=== PATIENT | female | born 1975 | race Caucasian/White ===

== ENCOUNTER 2020-04-10 22:07 | Emergency (ER) | payer OTHER ==
[2020-04-10] MEDS ORDERED: Ketorolac 60 MG/2 ML SDV IM ONE (23:08)
[2020-04-10] MEDS ORDERED: Acetaminophen/oxyCODONE 325-5 MG Tab PO PRN (23:08)
[2020-04-10] MEDS ORDERED: Baclofen 10 MG Tab PO ONE (23:08)
--- NOTE | 2020-04-10 23:38 | EDM.PDOC ---
ED HPI GENERAL MEDICAL PROBLEM - General Chief Complaint: Lower Extremity Injury/Pain Stated Complaint: RT HIP DISLOCATED Time Seen by Provider: 04/10/20 22:45 Source of Information: Reports: Patient, RN History Limitations: Reports: No Limitations - History of Present Illness INITIAL COMMENTS - FREE TEXT/NARRATIVE: Daniela Figueroa is a 44 yo female that presents to the ED after hurting her right hip/ buttock while doing a cartwheel this evening. She states that her left leg landed first, followed by her right leg and she heard a "pop" when she landed. She fell backwards and landed on her buttocks due to the pain. She was unable to bear weight or ambulate. She is brought in by her SO. When staff was helping her take off her pants, another 'pop' was heard. rates her pain 10/10 along the mid right buttock along to lateral hip. very limited ability to do any active or passive range of motion due to pain. denies chance of - she's had a tubal and her SO has also had a vasectomy. Onset: Today, Sudden Onset Date: 04/10/20 Duration: Hour(s): (1 hour), Constant Location: Reports: Lower Extremity, Right Quality: Reports: Sharp Severity: Severe Improves with: Reports: Immobilization Worsens with: Reports: Movement Associated Symptoms: Reports: No Other Symptoms Right Hip Pain Score (Numeric/FACES): 10 - Related Data Allergies Allergy/AdvReac Type Severity Reaction Status Date / Time Sulfa (Sulfonamide Allergy Hives Verified 04/10/20 22:52 Antibiotics) Home Meds: Home Meds Albuterol Sulfate [Albuterol Sulfate Hfa] 2 puff INH ASDIRECTED 04/10/20 [History] Cetirizine [ZyrTEC] 10 mg PO DAILY 04/10/20 [History] Dextroamphetamine/Amphetamine [Adderall 10 mg Tablet] 10 mg PO TID 04/10/20 [History] Dextroamphetamine/Amphetamine [Adderall] 30 mg PO DAILY 04/10/20 [History] Fluticasone/Vilanterol [Breo Ellipta 100-25 MCG Inhalation Kit] 2 puff INH DAILY 04/10/20 [History] Lurasidone HCl [Latuda] 60 mg PO DAILY 04/10/20 [History] Past Medical History HEENT History: Reports: Sinusitis Respiratory History: Reports: Asthma 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 Social & Family History - Tobacco Use Smoking Status *Q: Never Smoker - Caffeine Use Caffeine Use: Reports: Coffee, Soda - Recreational Drug Use Recreational Drug Use: No Review of Systems - Review of Systems Review Of Systems: See Below Constitutional: Reports: No Symptoms Eyes: Reports: No Symptoms Ears: Reports: No Symptoms Nose: Reports: No Symptoms Mouth/Throat: Reports: No Symptoms Respiratory: Reports: No Symptoms Cardiovascular: Reports: No Symptoms GI/Abdominal: Reports: No Symptoms Genitourinary: Reports: No Symptoms Musculoskeletal: Reports: Joint Pain (right hip), Muscle Pain (right buttock) Skin: Reports: No Symptoms Neurological: Reports: No Symptoms Psychiatric: Reports: No Symptoms ED EXAM, GENERAL - Physical Exam Exam: See Below Free Text/Narrative:: With patient supine, leg length is equal. pedal pulses equal and WNL. Cap refill WNL on bilaterally feet. AROM is minimal. Able to abduct leg about 20 degrees with severe pain, able to adduct leg back to midline. with leg straight, pain w ith internal/ external rotation of leg. minimal tenderness at the SI joint, along the lateral hip joint, trochanter bursa, or anterior groin. Severe pain with palpation along the mid buttock/ piriformis muscle that extends laterally. Once patient was standing with weight bearing mostly on left leg, the pain was most severe at the proximal hamstring just inferior to buttock. Exam Limited By: Physical Impairment (pain in right hip, buttock) General Appearance: Alert, Mild Distress (due to pain) Head: Atraumatic, Normocephalic Respiratory/Chest: No Respiratory Distress Peripheral Pulses: 2+: Dorsalis Pedis (L), Dorsalis Pedis (R) Back Exam: Normal Inspection. No: CVA Tenderness (R), CVA Tenderness (L), Muscle Spasm, Paraspinal Tenderness, Vertebral Tenderness Extremities: Normal Capillary Refill, Leg Pain (posterior), Limited Range of Motion (of right lower extremity). No: Joint Swelling, Increased Warmth Neurological: Alert, Oriented, Abnormal Gait (minimal weight bearing on right leg- keeps leg straight with weight bearing. ). No: Sensory/Motor Deficit Psychiatric: Normal Affect Skin Exam: Warm, Dry, Intact. No: Wound/Incision Lymphatic: No Adenopathy Course - Vital Signs Last Recorded V/S: Last Vital Signs Temp 97.9 F 04/10/20 22:51 Pulse 75 04/11/20 00:42 Resp 20 04/10/20 22:51 BP 104/64 04/11/20 00:42 Pulse Ox 100 04/11/20 00:42 - Orders/Labs/Meds Orders: Active Orders 24 hr Category Date Time Status Hip Min 2V or 3V w Pelvis Rt [CR] Stat Exams 04/10/20 22:59 Taken DME for Discharge [COMM] Routine Oth 04/11/20 00:56 Ordered Meds: Medications Discontinued Medications Generic Name Dose Route Start Last Admin Trade Name Freq PRN Reason Stop Dose Admin Baclofen 10 mg 04/10/20 23:08 04/10/20 23:22 Lioresal PO 04/10/20 23:09 10 mg ONETIME ONE Administration Hydromorphone HCl 0.5 mg 04/11/20 00:36 04/11/20 00:42 Dilaudid IM 04/11/20 00:37 0.5 mg ONETIME ONE Administration Ketorolac Tromethamine 60 mg 04/10/20 23:08 04/10/20 23:24 Toradol IM 04/10/20 23:09 60 mg ONETIME ONE Administration Oxycodone/Acetaminophen 1 tab 04/10/20 23:08 04/10/20 23:21 Percocet 325-5 Mg PO 1 tab ONETIME PRN Administration Pain - Radiology Interpretation Free Text/Narrative:: no acute fractures or pathology noted. Official radiology reading pending. - Re-Assessments/Exams Free Text/Narrative Re-Assessment/Exam: 04/11/20 00:40 after reevaluation of pain, patient reports pain at 7/10 after initial pharmacological interventions. Dilaudid IM ordered now. able to bear some weight on right leg while ambulating to bathroom. upon standing, point to proximal hamstring as strongest area of pain. is feeling muscle spasms. Departure - Departure Time of Disposition: 00:56 Disposition: Home, Self-Care 01 Condition: Fair Clinical Impression: Hamstring injury - Discharge Information *PRESCRIPTION DRUG MONITORING PROGRAM REVIEWED*: No *COPY OF PRESCRIPTION DRUG MONITORING REPORT IN PATIENT BIN: No Instructions: Muscle Strain, [id number] Referrals: PCP,None [Primary Care Provider] - Forms: ED Department Discharge Additional Instructions: You have a hamstring muscle injury. perform low activity for now. Use the crutches for comfort. Use ice for 20 minutes at a time every few hours while awake. Use 600mg of ibuprofen every 6 hours for pain for next 5 days, then use as needed. take the ibuprofen with food. For break through pain, use the percocet pain pills every 6 hours as needed. For muscle spasms, take a Flexeril twice daily as needed. Both of these medications may make you drowsy or sleepy. Do not drive or operate machinery while taking these pills. Follow-up with your PCP back in [place] if you are not feeling better within 1 week. Sepsis Event Note (ED) - Evaluation Sepsis Screening Result: No Definite Risk - Focused Exam Vital Signs: Vital Signs Temp Pulse Resp BP Pulse Ox 04/11/20 00:42 75 104/64 100 04/10/20 22:51 97.9 F 89 20 122/74 97 04/10/20 22:49 97.9 F 89 20 122/74 97 - My Orders Last 24 Hours: My Active Orders 04/10/20 22:59 Hip Min 2V or 3V w Pelvis Rt [CR] Stat 04/11/20 00:56 DME for Discharge [COMM] Routine - Assessment/Plan Last 24 Hours: My Active Orders 04/10/20 22:59 Hip Min 2V or 3V w Pelvis Rt [CR] Stat 04/11/20 00:56 DME for Discharge [COMM] Routine Plan: RX for percocet and flexeril to use prn for hamstring muscle sprain. Crutches provided for comfort. Advised to rest and follow-up in not improving once she is back to [place]. Pt agreeable to plan. Discharged with pain controlled
[2020-04-11] MEDS ORDERED: HYDROmorphone 0.5 MG/0.5 ML Syringe IM ONE (00:36)
--- NOTE | 2020-04-11 09:10 | CR ---
Hip Min 2V or 3V w Pelvis Rt CLINICAL HISTORY: Fall FINDINGS: No fracture or osseous lesion is identified. Articular surfaces are smooth. Joint spaces are fairly well-maintained. There is minimal vacuum phenomena in the lower left SI joint. This could be related to some motion. Impression: No fracture or dislocation There is vacuum phenomenon in the left lower SI joint. This could be degenerative or due to some joint motion
== END 2020-04-11 01:28 | disposition home or self-care (01) ==
LOC: JP.ED 22:07
DX: S79.921A Unspecified injury of right thigh, initial encounter (principal); J45.909 Unspecified asthma, uncomplicated; F41.9 Anxiety disorder, unspecified; F32.9 Major depressive disorder, single episode, unspecified; Z88.2 Allergy status to sulfonamides; Z79.899 Other long term (current) drug therapy; W19.XXXA Unspecified fall, initial encounter
CPT/HCPCS: 73502; 96372; 99283; A9270; J1170; J1885